=== PATIENT | male | born 1990 | race Caucasian/White ===

== ENCOUNTER → 2017-10-19 | Day surgery (SDC) | payer MEDICAID ==
[~2017-10-19] MED LIST: LIDOCAINE 2% INJ 100 MG/5 ML SDV (FOR ANES.) As Ordered; PROPOFOL 200 MG/20 ML VIAL As Ordered
[2017-10-19] MEDS: NS 1,000 ML IV (12:22)
== END | disposition home or self-care (01) ==
LOC: M OPP 11:57
DX: K52.9 Noninfective gastroenteritis and colitis, unspecified (principal); I10 Essential (primary) hypertension; F79 Unspecified intellectual disabilities; F41.9 Anxiety disorder, unspecified; F32.9 Major depressive disorder, single episode, unspecified; J45.20 Mild intermittent asthma, uncomplicated; G47.33 Obstructive sleep apnea (adult) (pediatric); Z79.899 Other long term (current) drug therapy; Z88.8 Allergy status to other drugs, medicaments and biological substances
CPT/HCPCS: 45380

== ENCOUNTER 2024-06-22 19:16 | Inpatient (IN) | payer MEDICAID ==
[~2024-06-22] VITALS: Ht 167.6 cm; Wt 100.3 kg
[~2024-06-22 19:16] MED LIST changes: -LIDOCAINE 2% INJ 100 MG/5 ML SDV (FOR ANES.) As Ordered; +MIRA3350 PO; -PROPOFOL 200 MG/20 ML VIAL As Ordered; +PROZ20CA11 PO; +RANI150T PO; +ZYPR10TA PO
[2024-06-22 19:56] LABS: HEMATOCRIT 45.9 % (42.0-52.0); HEMOGLOBIN 15.2 g/dl (13.5-17.5); MEAN CORPUSCULAR HEMOGLOBIN 28.7 pg (27.0-33.0); MEAN CORPUSCULAR HGB CONC 33.1 g/dl (32.0-36.5); MEAN CORPUSCULAR VOLUME 86.6 fl (80.0-96.0); PLATELET COUNT, AUTOMATED 203 10^3/uL (150-450); WHITE BLOOD COUNT 7.9 10^3/uL (4.0-10.0)
[2024-06-22 20:21] LABS: AMPHETAMINES LEVEL URINE NEGATIVE (NEGATIVE); BARBITURATES URINE NEGATIVE (NEGATIVE); BENZODIAZEPINES URINE NEGATIVE (NEGATIVE); CANNABINOIDS URINE NEGATIVE (NEGATIVE); COCAINE METABOLITE URINE NEGATIVE (NEGATIVE); METHADONE URINE NEGATIVE (NEGATIVE); OPIATES URINE NEGATIVE (NEGATIVE); PHENCYCLIDINE URINE NEGATIVE (NEGATIVE)
[2024-06-22 20:23] LABS: ETHYL ALCOHOL (ETHANOL) < 0.003 % (0.000-0.010)
[2024-06-22 20:25] LABS: ALBUMIN 4.2 G/DL (3.2-5.2); ALKALINE PHOSPHATASE 88 U/L (40-129); ALT/SGPT 43 U/L (7.0-40); AST/SGOT 24 U/L (<34); BILIRUBIN,DIRECT 0.1 MG/DL (<0.4); BILIRUBIN,TOTAL 0.4 MG/DL (0.3-1.2); BLOOD UREA NITROGEN 14 MG/DL (9-23); CALCIUM LEVEL 9.7 MG/DL (8.5-10.1); CARBON DIOXIDE LEVEL 24 MMOL/L (20-31); CHLORIDE LEVEL 107 MMOL/L (98-107); CREATININE FOR GFR 0.71 MG/DL (0.70-1.30); GLOMERULAR FILTRATION RATE > 60.0 (>60); GLUCOSE, FASTING 103 MG/DL (60-100); POTASSIUM SERUM 4.1 MMOL/L (3.5-5.1); SALICYLATE LEVEL < 3.0 MG/DL (<30); SODIUM LEVEL 142 MMOL/L (136-145); TOTAL PROTEIN 8.4 G/DL (5.7-8.2)
[2024-06-22 20:27] LABS: THYROID STIMULATING HORMONE 1.883 uIU/ML (0.55-4.78)
[2024-06-22] MEDS ORDERED: FLUO40CA PO (21:28)
[2024-06-22] MEDS ORDERED: OLOP2.5D3 OU (21:29)
[2024-06-22] MEDS ORDERED: BENZ0.5T2 PO (21:29)
[2024-06-22] MEDS ORDERED: ROSU10TA61 PO (21:29)
[2024-06-22] MEDS ORDERED: VITA500045 PO (21:29)
[2024-06-22] MEDS ORDERED: REFR0.5D8 OU (21:29)
[2024-06-22] MEDS ORDERED: META0.52 PO (21:29)
[2024-06-22] MEDS ORDERED: HOME MED LIST COMPLETE! XX SCH (21:30)
[2024-06-23] MEDS: METAMUCIL (PSYLLIUM) PACKET PO SCH (09:33)
[2024-06-23] MEDS: BENZTROPINE 0.5 MG TAB PO SCH (09:33)
[2024-06-23] MEDS: FLUoxetine 20MG CAP PO SCH (09:33)
[2024-06-23 13:20] VITALS: BP 140/80; TEMP 97.7; O2SAT 96
[2024-06-23] MEDS ORDERED: ROSUVASTATIN 10 MG TAB (CRESTOR) PO SCH (21:00)
[2024-06-23] MEDS ORDERED: MOM 30ML SUSPENSION UDC PO PRN (21:40)
[2024-06-23] MEDS ORDERED: MAALOX 30 ML SUSP *UDC PO PRN (21:40)
[2024-06-23] MEDS ORDERED: ACETAMINOPHEN 325 MG TAB PO PRN (21:40)
[2024-06-23] MEDS ORDERED: OLANZapine 5 MG TAB PO PRN (21:40)
[2024-06-23] MEDS ORDERED: LORazepam 1 MG TAB PO PRN (21:40)
[2024-06-23] MEDS ORDERED: diphenhydrAMINE 25MG CAP PO PRN (21:40)
[2024-06-23] MEDS ORDERED: traZODone 50 MG TAB PO PRN (21:40)
[2024-06-24] MEDS: UNRESOLVED CLARIFICATION ENTRY XX SCH (00:01)
[2024-06-24 06:40] VITALS: BP 123/80; TEMP 96.7; O2SAT 96
[2024-06-24] MEDS: NICOTINE 14 MG/24 HR TRANSDERMAL TD SCH (08:37)
[2024-06-24] MEDS ORDERED: METAMUCIL (PSYLLIUM) PACKET PO SCH ×2 (09:00→10:53)
[2024-06-24] MEDS: METAMUCIL (PSYLLIUM) PACKET PO SCH (11:05)
[2024-06-24] MEDS: OLANZapine 10 MG TAB PO SCH (11:06)
[2024-06-24] MEDS: BENZTROPINE 0.5 MG TAB PO SCH (11:06)
[2024-06-24] MEDS: FLUoxetine 20MG CAP PO SCH (11:06)
[2024-06-24] MEDS: IBUPROFEN 400MG TAB PO PRN (12:11)
[2024-06-24 15:27] VITALS: BP 109/67; TEMP 97.2; O2SAT 98
[2024-06-24] MEDS: ROSUVASTATIN 10 MG TAB (CRESTOR) PO SCH (21:14)
[2024-06-25 06:55] VITALS: BP 127/71; TEMP 97.4; O2SAT 98
[2024-06-25 17:52] VITALS: BP 101/58; TEMP 98.1; O2SAT 99
[2024-06-25] MEDS: traZODone 50 MG TAB PO SCH (21:53)
[2024-06-26 07:04] VITALS: BP 111/77; TEMP 97; O2SAT 98
[2024-06-26] MEDS ORDERED: TRAZ-252 PO (10:54)
[2024-06-29] MEDS ORDERED: VITAMIN D 50,000 UNITS CAPSULE (ERGOCALCIFEROL 1.25MG) PO SCH (09:00)
== END 2024-06-26 15:22 | disposition home or self-care (01) | DRG 751 ==
LOC: M ED 19:16 → M ED INP 06-23 11:25 → M PSY 06-23 12:47
PROVIDERS: ADMIT Psychiatry & Neurology Psychiatry; ATTEND Internal Medicine
DX: F33.3 Major depressive disorder, recurrent, severe with psychotic symptoms (principal); R45.850 Homicidal ideations; E55.9 Vitamin D deficiency, unspecified; F70 Mild intellectual disabilities; E78.5 Hyperlipidemia, unspecified; K59.00 Constipation, unspecified; Z79.899 Other long term (current) drug therapy; Z88.8 Allergy status to other drugs, medicaments and biological substances

== ENCOUNTER 2025-01-21 22:56 | Inpatient (IN) | payer MEDICAID ==
[~2025-01-21] VITALS: Ht 167.6 cm; Wt 100.0 kg
[~2025-01-21 22:56] MED LIST changes: +BENZ0.5T2 PO; +ERGO125013 PO; +FLUO40CA PO; +META0.52 PO; +OLOP2.5D3 OU; -PROZ20CA11 PO; +PROZ20CA12 PO; +REFR0.5D8 OU; +ROSU10TA61 PO; +TRAZ-252 PO
[2025-01-21 23:30] LABS: PLATELET COUNT, AUTOMATED 179 10^3/uL (150-450)
[2025-01-21] MEDS ORDERED: [UNRECOGNIZED DRUG - CODE] PR (23:35)
[2025-01-21 23:47] LABS: AMPHETAMINES LEVEL URINE NEGATIVE (NEGATIVE); BARBITURATES URINE NEGATIVE (NEGATIVE); BENZODIAZEPINES URINE NEGATIVE (NEGATIVE); CANNABINOIDS URINE NEGATIVE (NEGATIVE); COCAINE METABOLITE URINE NEGATIVE (NEGATIVE); METHADONE URINE NEGATIVE (NEGATIVE); OPIATES URINE NEGATIVE (NEGATIVE); PHENCYCLIDINE URINE NEGATIVE (NEGATIVE)
[2025-01-22 00:12] LABS: SALICYLATE LEVEL < 3.0 MG/DL (<30)
[2025-01-22 00:13] LABS: ALT/SGPT 35 U/L (7.0-40); AST/SGOT 28 U/L (<34); CALCIUM LEVEL 9.5 MG/DL (8.5-10.1); CARBON DIOXIDE LEVEL 28 MMOL/L (20-31); CHLORIDE LEVEL 107 MMOL/L (98-107); CREATININE FOR GFR 0.89 MG/DL (0.70-1.30); GLOMERULAR FILTRATION RATE > 90.0 (>60); POTASSIUM SERUM 4.3 MMOL/L (3.5-5.1); SODIUM LEVEL 144 MMOL/L (136-145)
[2025-01-22] MEDS ORDERED: MAALOX 30 ML SUSP *UDC PO PRN (03:10)
[2025-01-22] MEDS ORDERED: MOM 30 ML SUSPENSION UDC PO PRN (03:10)
[2025-01-22] MEDS ORDERED: IBUPROFEN 400 MG TAB PO PRN (03:10)
[2025-01-22] MEDS ORDERED: traZODone 50 MG TAB PO PRN (03:10)
[2025-01-22 03:36] LABS: ETHYL ALCOHOL (ETHANOL) < 0.003 % (0.000-0.010)
[2025-01-22 04:28] VITALS: BP 138/76; TEMP 97.1; O2SAT 98
[2025-01-22] MEDS ORDERED: HYDR50TA70 PO (12:00)
[2025-01-22] MEDS ORDERED: OLAN1TAB20 PO (12:00)
[2025-01-22] MEDS ORDERED: HOME MED LIST COMPLETE! XX SCH (12:00)
[2025-01-22] MEDS: ACETAMINOPHEN 325 MG TAB PO PRN (14:55)
[2025-01-22 15:11] VITALS: BP 110/66; TEMP 97.8; O2SAT 97
[2025-01-22] MEDS: BENZTROPINE 0.5 MG TAB PO SCH (20:24)
[2025-01-22] MEDS: ROSUVASTATIN 10 MG TAB PO SCH (20:25)
[2025-01-22] MEDS: OLANZapine 10 MG TAB PO SCH (20:40)
[2025-01-23 06:47] VITALS: BP 127/77; TEMP 96.5; O2SAT 94
[2025-01-23] MEDS: FLUoxetine 20 MG CAP PO SCH (09:35)
[2025-01-23 16:25] VITALS: BP 120/57; TEMP 97.4; O2SAT 98
[2025-01-23] MEDS ORDERED: DEPA500T2 PO (19:15)
[2025-01-23] MEDS: DIVALPROEX 500 MG *ER* TAB PO SCH (20:15)
[2025-01-23] MEDS: RAMELTEON 8 MG TAB PO SCH (23:16)
[2025-01-24 06:21] VITALS: BP 115/73; TEMP 97; O2SAT 99
== END 2025-01-24 16:47 | disposition home or self-care (01) | DRG 753 ==
LOC: M ED 22:56 → M ED INP 01-22 03:06 → M PSY 01-22 03:57
PROVIDERS: ADMIT Psychiatry & Neurology Neurology; ATTEND Internal Medicine
DX: F31.60 Bipolar disorder, current episode mixed, unspecified (principal); F71 Moderate intellectual disabilities; F41.9 Anxiety disorder, unspecified; Z79.899 Other long term (current) drug therapy; Z88.8 Allergy status to other drugs, medicaments and biological substances